=== PATIENT | female | born 1985 | race Asian ===

== ENCOUNTER 2016-07-18 17:40 | Emergency (ER) | payer BC, OTHER ==
[2016-07-18 17:55] VITALS: TEMP 97.8; BMI 26.5
[2016-07-18] MEDS ORDERED: KETOROLAC TROMETHAMINE 30 MG/1 ML VIAL IVPUSH ONE (17:56)
--- NOTE | 2016-07-18 17:56 | PDOC ---
Rapid Medical Evaluation Chief Complaint: Pain, Acute Time Seen by Provider: 07/18/16 17:52 Medical Evaluation: Allergies Allergy/AdvReac Type Severity Reaction Status Date / Time ciprofloxacin Allergy Hives Verified 07/18/16 17:51 07/18/16 17:53 31 year old female with history of PCOS, renal colic, appendectomy, diagnosed with "small" kidney stone by Dr. Meza in office by u/s approximately 1 wk ago presenting with uncontrolled right flank pain. -Ua/cutlure/urine -Basic labs -Toradol -To Main ED for further evaluation
[2016-07-18] MEDS ORDERED: SODIUM CHLORIDE 1,000 ML IV STA (18:20)
[2016-07-18] MEDS ORDERED: KETOROLAC TROMETHAMINE 30 MG/1 ML VIAL ONE (18:28)
[2016-07-18 18:30] LABS: BASOPHIL 0.5 % (0-2.0); MCH 27.9 pg (25.7-33.7); WHITE BLOOD COUNT 14.8 K/mm3 (4.0-10.0)
[2016-07-18 18:32] LABS: EOSINOPHIL 2.7 % (0-4.5); MCHC 33.1 g/dl (32.0-36.0); MEAN CELL VOLUME 84.3 fl (80-96); MEAN PLT VOLUME 8.8 fl (7.5-11.1); NEUTROPHILS 66.8 % (42.8-82.8); PLATELET COUNT 336 K/MM3 (134-434); RDW 12.8 % (11.6-15.6)
[2016-07-18 18:34] LABS: URINE APPEARANCE CLEAR; URINE BILIRUBIN NEGATIVE (NEGATIVE); URINE COLOR COLORLESS; URINE GLUCOSE (UA) NEGATIVE (NEGATIVE); URINE KETONE NEGATIVE (NEGATIVE); URINE NITRITE NEGATIVE (NEGATIVE); URINE PROTEIN NEGATIVE (NEGATIVE); URINE UROBILINOGEN NEGATIVE E.U./dl (0.2-1.0)
[2016-07-18 18:38] LABS: URINE BLOOD 2+ (NEGATIVE); URINE LEUK ESTERASE TRACE (NEGATIVE)
[2016-07-18 18:39] LABS: URINE WBC <1 /hpf (3-5)
--- NOTE | 2016-07-18 18:59 | PDOC ---
History of Present Illness - General History Source: Patient Exam Limitations: No Limitations - History of Present Illness Initial Comments: 07/18/16 19:00 The patient is a 31 year old female with a significant past medical history of kidney stones (last obstructing stone in 2014), who presents to the ER with right sided flank pain and right groin pain for several hours. 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 Patient states she had slight pain in the right groin for the past 2-3 days but her right flank pain began today. On interview, patient reports feeling nausea. Patient states she visited Dr. Jules one week ago and was told that her XR and US appear normal. Patient says she has an appointment with Dr. Jules tomorrow. Denies vomiting, diarrhea Denies dysuria, hematuria, frequency Denies dizziness Surgical Hx: Appendectomy Allergies: Cipro (gets hives) <Nazanin Delarosa - Last Filed: 07/18/16 19:31> <Omer Horvath - Last Filed: 07/18/16 21:13> <Genevieve Parekh - Last Filed: 07/18/16 22:40> - General Chief Complaint: Pain, Acute Stated Complaint: ABDOMINAL PAIN Time Seen by Provider: 07/18/16 17:52 Past History <Nazanin Delarosa - Last Filed: 07/18/16 19:31> <Omer Horvath - Last Filed: 07/18/16 21:13> - Past Medical History Kidney Stones: Yes Other medical history: PCOS - Surgical History Appendectomy: Yes - Psycho/Social/Smoking Cessation Hx Anxiety: No Suicidal Ideation: No Smoking History: Never smoked Have you smoked in the past 12 months: No Information on smoking cessation initiated: No Hx Alcohol Use: No Drug/Substance Use Hx: No Substance Use Type: None <Genevieve Parekh - Last Filed: 07/18/16 22:40> - Past Medical History Allergies/Adverse Reactions: Allergies Allergy/AdvReac Type Severity Reaction Status Date / Time ciprofloxacin Allergy Hives Verified 07/18/16 17:51 Home Medications: Ambulatory Orders Metformin HCl [Metformin HCl ER] 1,000 mg PO DAILY 11/05/15 Abd/GI Specific PMHX - Complaint Specific PMHX Colitis: No Diverticulitis: No Gall Bladder Disease: No GERD: No Hepatitis: No Irritable Bowel Synd (IBS): No Pancreatitis: No GI Ulcer Disease: No <IglesiaGenevieve Rach - Last Filed: 07/18/16 22:40> Review of Systems - Review of Systems Able to Perform ROS?: Yes Comments:: 07/18/16 19:00 CONSTITUTIONAL: Absent: fever, no chills, no fatigue EYES: Absent: visual changes ENT: Absent: ear pain, no sore throat CARDIOVASCULAR: Absent: chest pain, no palpitations RESPIRATORY: Absent: cough, no SOB GI: Present: (+) right flank pain, (+) right pelvic pain, (+) nausea Absent: no vomiting, no constipation, no diarrhea GENITOURINARY: Absent: dysuria, no frequency, no hematuria MUSCULOSKELETAL: Absent: back pain, no arthralgia, no myalgia SKIN: Absent: rash NEURO: Absent: headache <Uts,Nazanin - Last Filed: 07/18/16 19:31> *Physical Exam - Vital Signs Last Vital Signs Temp Pulse Resp BP Pulse Ox 97.8 F 78 18 146/109 100 07/18/16 17:52 07/18/16 17:52 07/18/16 17:52 07/18/16 17:52 07/18/16 17:52 - Physical Exam Comments: 07/18/16 19:00 GENERAL: Well-appearing, well-nourished. In distress. HEENT: Normocephalic, atraumatic. PERRL, EOM intact. CARDIOVASCULAR: Normal S1, S2. Regular rate and rhythm. PULMONARY: Clear to auscultation bilaterally. ABDOMEN: Soft, non-distended, non-tender. EXTREMITIES: Right flank tenderness. CVA tenderness. Normal ROM in all four extremities. No gross deformities. SKIN: Warm, dry. No rash NEUROLOGICAL: No focal neurological deficits. <Uts,Nazanin - Last Filed: 07/18/16 19:31> - Vital Signs Last Vital Signs Temp Pulse Resp BP Pulse Ox 97.8 F 78 18 146/109 100 07/18/16 17:52 07/18/16 17:52 07/18/16 17:52 07/18/16 17:52 07/18/16 17:52 <Omer Horvath - Last Filed: 07/18/16 21:13> - Vital Signs Last Vital Signs Temp Pulse Resp BP Pulse Ox 97.8 F 78 18 146/109 100 07/18/16 17:52 07/18/16 17:52 07/18/16 17:52 07/18/16 17:52 07/18/16 17:52 <Genevieve Parekh - Last Filed: 07/18/16 22:40> ED Treatment Course - LABORATORY CBC & Chemistry Diagram: 07/18/16 17:58 07/18/16 17:58 - ADDITIONAL ORDERS Additional order review: Laboratory Results 07/18/16 17:58 Urine Color Colorless Urine Appearance Clear Urine pH 7.0 Urine Protein Negative Urine Glucose (UA) Negative Urine Ketones Negative Urine Blood 2+ H Urine Nitrite Negative Urine Bilirubin Negative Urine Urobilinogen Negative Ur Leukocyte Esterase Trace H Urine RBC None Urine WBC <1 Ur Epithelial Cells Rare Urine HCG, Qual Negative 07/18/16 17:58 RBC 4.98 MCV 84.3 MCHC 33.1 RDW 12.8 MPV 8.8 Neutrophils % 66.8 Lymphocytes % 24.5 D Monocytes % 5.5 Eosinophils % 2.7 Basophils % 0.5 - Medications Given in the ED: ED Medications Discontinued Medications Generic Name Dose Route Start Last Admin Trade Name Freq PRN Reason Stop Dose Admin Ketorolac Tromethamine 30 mg 07/18/16 17:56 07/18/16 18:36 Toradol Injection - IVPUSH 07/18/16 17:57 30 mg ONCE ONE Administration <UtsergeNazanin - Last Filed: 07/18/16 19:31> - LABORATORY CBC & Chemistry Diagram: 07/18/16 17:58 07/18/16 17:58 - ADDITIONAL ORDERS Additional order review: Laboratory Results 07/18/16 07/18/16 17:58 17:58 Sodium 139 Potassium 3.9 Chloride 105 Carbon Dioxide 24 Anion Gap 10 BUN 6 L Creatinine 0.8 Creat Clearance w eGFR > 60 Random Glucose 89 Calcium 9.7 Total Bilirubin 0.4 D AST 33 D ALT 66 Alkaline Phosphatase 72 Total Protein 8.4 H Albumin 4.5 Urine Color Colorless Urine Appearance Clear Urine pH 7.0 Urine Protein Negative Urine Glucose (UA) Negative Urine Ketones Negative Urine Blood 2+ H Urine Nitrite Negative Urine Bilirubin Negative Urine Urobilinogen Negative Ur Leukocyte Esterase Trace H Urine RBC None Urine WBC <1 Ur Epithelial Cells Rare Urine HCG, Qual Negative 07/18/16 17:58 RBC 4.98 MCV 84.3 MCHC 33.1 RDW 12.8 MPV 8.8 Neutrophils % 66.8 Lymphocytes % 24.5 D Monocytes % 5.5 Eosinophils % 2.7 Basophils % 0.5 - RADIOLOGY Radiology Studies Ordered: 07/18/16 21:13 US/KIDNEY/ RENAL US Impression: Mild right-sided hydronephrosis Report by Flavio Thomason - Medications Given in the ED: ED Medications Discontinued Medications Generic Name Dose Route Start Last Admin Trade Name Freq PRN Reason Stop Dose Admin Sodium Chloride 1,000 mls @ 1,000 mls/hr 07/18/16 18:20 07/18/16 18:36 Normal Saline - IV 07/18/16 19:19 1,000 mls/hr ASDIR STA Administration Ketorolac Tromethamine 30 mg 07/18/16 17:56 07/18/16 18:36 Toradol Injection - IVPUSH 07/18/16 17:57 30 mg ONCE ONE Administration <Omer Horvath - Last Filed: 07/18/16 21:13> - LABORATORY CBC & Chemistry Diagram: 07/18/16 17:58 07/18/16 17:58 - ADDITIONAL ORDERS Additional order review: Laboratory Results 07/18/16 17:58 Urine Color Colorless Urine Appearance Clear Urine pH 7.0 Urine Protein Negative Urine Glucose (UA) Negative Urine Ketones Negative Urine Blood 2+ H Urine Nitrite Negative Urine Bilirubin Negative Urine Urobilinogen Negative Ur Leukocyte Esterase Trace H Urine RBC None Urine WBC <1 Ur Epithelial Cells Rare Urine HCG, Qual Negative 07/18/16 17:58 RBC 4.98 MCV 84.3 MCHC 33.1 RDW 12.8 MPV 8.8 Neutrophils % 66.8 Lymphocytes % 24.5 D Monocytes % 5.5 Eosinophils % 2.7 Basophils % 0.5 - Medications Given in the ED: ED Medications Discontinued Medications Generic Name Dose Route Start Last Admin Trade Name Freq PRN Reason Stop Dose Admin Ketorolac Tromethamine 30 mg 07/18/16 17:56 07/18/16 18:36 Toradol Injection - IVPUSH 07/18/16 17:57 30 mg ONCE ONE Administration <Genevieve Parekh - Last Filed: 07/18/16 22:40> *DC/Admit/Observation/Transfer - Attestations Scribe Attestion: 07/18/16 19:03 Documentation prepared by Nazanin Delarosa, acting as medical sales representative for Genevieve Parekh MD. <Nazanin Delarosa - Last Filed: 07/18/16 19:31> - Attestations Scribe Attestion: 07/18/16 21:14 Documentation prepared by Omer Horvath, acting as medical sales representative for Genevieve Parekh MD <Omer Horvath - Last Filed: 07/18/16 21:13> <Genevieve Parekh - Last Filed: 07/18/16 22:40> Diagnosis at time of Disposition: Hydronephrosis of right kidney, Flank pain - Discharge Dispostion Disposition: HOME Condition at time of disposition: Stable - Referrals Referrals: Tien King MD [Primary Care Provider] - Ulisses Meza MD., MD [Staff Physician] - - Patient Instructions Printed Discharge Instructions: Hydronephrosis -- Adult, DI for Flank Pain Additional Instructions: please keep your appointment with Dr Meza
[2016-07-18 19:55] LABS: ALBUMIN 4.5 g/dl (3.4-5.0); ALK PHOS 72 U/L (45-117); ANION GAP 10 (8-16); BILIRUBIN,TOTAL 0.4 mg/dL (0.2-1.0); CALCIUM 9.7 mg/dL (8.5-10.1); CO2 24 mmol/L (21-32); CREATININE 0.8 mg/dL (0.55-1.02); GLUCOSE,RANDOM 89 mg/dL (74-106); SGOT/AST 33 U/L (15-37); SGPT/ALT 66 U/L (12-78); TOT PROT 8.4 g/dl (6.4-8.2)
[2016-07-18] MEDS ORDERED: TAMSULOSIN HCL 0.4 MG CAP.ER.24H (FP) PO ONE (21:32)
[2016-07-18] MEDS ORDERED: TAMSULOSIN HCL 0.4 MG CAP.ER.24H (FP) ONE (22:08)
[2016-07-18 23:09] VITALS: BP 128/72; PULSE 80
== END 2016-07-18 23:09 | disposition home or self-care (01) ==
LOC: JER 17:40
PROC: 3E0333Z Introduction of Anti-inflammatory into Peripheral Vein, Percutaneous Approach (ICD-10-PCS; principal; 2016-07-18)
PROC: 3E0337Z Introduction of Electrolytic and Water Balance Substance into Peripheral Vein, Percutaneous Approach (ICD-10-PCS; 2016-07-18)
DX: N13.30 Unspecified hydronephrosis (principal); R10.31 Right lower quadrant pain; E28.2 Polycystic ovarian syndrome; Z87.442 Personal history of urinary calculi
CPT/HCPCS: 36415; 76775-TC; 80053; 81003; 81015; 84703; 85025; 87086; 99284-25